=== PATIENT | male | born 1970 | race Caucasian/White ===

== ENCOUNTER 2024-07-11 09:45 | Outpatient (REF) | payer MEDICAID, SELFPAY ==
--- NOTE | ~2024-07-11 | XR_ITS ---
EXAMINATION: XR RIGHT TIBIA FIBULA CLINICAL INFORMATION: Achilles tendinitis of right lower extremity. Patient states pain. COMPARISON: Concurrent right ankle radiographs. TECHNIQUE: AP and lateral views of the right tibia and fibula were obtained. FINDINGS: No acute fracture or dislocation. No concerning lytic or blastic osseous lesion. No cortical erosion or periosteal reaction. No abnormal soft tissue calcification. XR/XR tibia fibula RT 2V IMPRESSION: Unremarkable examination. Electronically signed by: Royal Dennis MD 09/14/2024 09:51 AM [facility]
--- NOTE | ~2024-07-11 | XR_ITS ---
EXAMINATION: XR ANKLE RIGHT CLINICAL INFORMATION: Achilles tendonitis pain with plantarflexion. COMPARISON: None available TECHNIQUE: AP, lateral, and mortise views of the right ankle. FINDINGS: Small posterior calcaneal spur. No fracture. Alignment is anatomic. No erosions. Joint spaces are maintained. Soft tissues are normal. XR/XR ankle RT 2V IMPRESSION: Small posterior calcaneal spur. Electronically signed by: Wil Sanchez MD 08/27/2024 07:41 AM [facility]
[2024-07-11 14:28] LABS: MANUAL DIFF FLAG NO
[2024-07-11 14:33] LABS: Basophils Percent Auto 0.7 % (0-2); Eosinophils Absolute Auto 0.2 X10*3/uL (0.0-0.4); Eosinophils Percent Auto 3.5 % (0-4); Hematocrit 40.2 % (42.0-52.0); Hemoglobin 14.3 g/dl (14.0-18.0); Imm Gran Abs Auto 0.01 X10*3/uL (0.00-0.03); Imm Gran Pct Auto 0.2 % (0.0-0.4); Lymphocytes Absolute Auto 1.3 X10*3/uL (1.2-4.9); Lymphocytes Percent Auto 27.6 % (20-40); Mean Corpuscular HGB Conc 35.6 g/dl (31.0-36.0); Mean Corpuscular Volume 92.8 fL (80.0-98.0); Mean Platelet Volume 9.6 fL (9.4-12.4); Monocytes Absolute Auto 0.4 X10*3/uL (0.1-1.2); Monocytes Percent Auto 8.8 % (2-11); Neutrophils Absolute Auto 2.7 x10*3/uL (2.0-8.3); Neutrophils Percent Auto 59.2 % (45-73); Platelet Count 209 X10*3/uL (160-400); Red Blood Count 4.33 X10*6/uL (4.60-5.80); Red Cell Distribution Width 11.9 % (11.0-16.0); White Blood Count 4.6 X10*3/uL (4.8-10.8)
[2024-07-11 14:57] LABS: Alanine Aminotransferase 19 U/L (0-40); Albumin Level 4.3 g/dL (3.5-5.0); Alkaline Phosphatase 54 U/L (39-117); Anion Gap 10 (12-20); Aspartate Amino Transferase 27 U/L (5-37); Bilirubin Total 1.3 mg/dL (0.0-1.0); Blood Urea Nitrogen 13 mg/dL (9-16); Calcium 9.2 mg/dL (8.4-10.2); Carbon Dioxide 29 mmol/L (22-29); Chloride 105 mmol/L (96-108); Cholesterol 183 mg/dL (<200); Estimated Glomerular Filt Rate > 60; Glucose Random 104 mg/dL (60-115); HDL Cholesterol 47 mg/dL (>40); LDL Cholesterol Calculated 114 mg/dL (<100); Potassium 4.1 mmol/L (3.3-5.1); Sodium 140 mmol/L (135-145); Total Protein 7.4 g/dL (6.5-8.0); Triglycerides 112 mg/dL (<150)
[2024-07-11 15:17] LABS: TSH reflex Free T4 1.91 uIU/mL (0.32-4.0); Vitamin D 25-OH Total 43.5 ng/mL (>30)
[2024-07-11 15:31] LABS: Folate 10.4 ng/mL (> or = 4.0); Vitamin B12 308 pg/mL (200-900)
[2024-07-12 04:02] LABS: HIV AB/AG Nonreactive (Nonreactive); HIV Num 1 0.05 S/CO (0.00-0.99); ~HepC Num1 0.12 S/CO (0.00-0.79); ~Hepatitis C Antibody Nonreactive (Nonreactive)
== END 2024-07-11 09:46 | disposition home or self-care (01) ==
LOC: HO.CHCLDS 09:45
PROVIDERS: PCP Family Medicine; Visit Provider Family Medicine
DX: Z13.9 Encounter for screening, unspecified (principal); F41.9 Anxiety disorder, unspecified; E66.811 Obesity, class 1; Z68.30 Body mass index [BMI] 30.0-30.9, adult; M76.61 Achilles tendinitis, right leg
CPT/HCPCS: 36415; 73590; 73600; 80053; 80061; 82306; 82607; 82746; 84443; 85025; 86803; 87389

== ENCOUNTER 2024-07-23 09:41 | Outpatient (REF) | payer MEDICAID, SELFPAY ==
[2024-07-23 14:09] LABS: MANUAL DIFF FLAG NO
[2024-07-23 14:32] LABS: Basophils Percent Auto 0.9 % (0-2); Eosinophils Absolute Auto 0.1 X10*3/uL (0.0-0.4); Eosinophils Percent Auto 2.8 % (0-4); Hematocrit 38.3 % (42.0-52.0); Hemoglobin 13.1 g/dl (14.0-18.0); Imm Gran Abs Auto 0.02 X10*3/uL (0.00-0.03); Imm Gran Pct Auto 0.5 % (0.0-0.4); Lymphocytes Absolute Auto 1.5 X10*3/uL (1.2-4.9); Lymphocytes Percent Auto 34.9 % (20-40); Mean Corpuscular HGB Conc 34.2 g/dl (31.0-36.0); Mean Corpuscular Hemoglobin 32.9 pg (27.0-33.0); Mean Corpuscular Volume 96.2 fL (80.0-98.0); Mean Platelet Volume 9.8 fL (9.4-12.4); Monocytes Absolute Auto 0.4 X10*3/uL (0.1-1.2); Neutrophils Absolute Auto 2.2 x10*3/uL (2.0-8.3); Neutrophils Percent Auto 50.9 % (45-73); Platelet Count 189 X10*3/uL (160-400); Red Blood Count 3.98 X10*6/uL (4.60-5.80); Red Cell Distribution Width 11.9 % (11.0-16.0); White Blood Count 4.3 X10*3/uL (4.8-10.8)
[2024-07-23 14:34] LABS: Bilirubin Direct 0.3 mg/dL (0.0-0.5)
[2024-07-23 14:36] LABS: Alanine Aminotransferase 18 U/L (0-40); Albumin Level 4.2 g/dL (3.5-5.0); Alkaline Phosphatase 54 U/L (39-117); Aspartate Amino Transferase 23 U/L (5-37); Bilirubin Direct 0.3 mg/dL (0.0-0.5); Total Protein 6.8 g/dL (6.5-8.0)
== END 2024-07-23 09:42 | disposition home or self-care (01) ==
LOC: HO.CHCLDS 09:41
PROVIDERS: Visit Provider Family Medicine
DX: D72.9 Disorder of white blood cells, unspecified (principal); E80.6 Other disorders of bilirubin metabolism
CPT/HCPCS: 36415; 80076; 82248; 85025